=== PATIENT | female | born 1960 | race Caucasian/White ===

== ENCOUNTER 2017-12-31 09:04 | Outpatient (CLI) | payer OTHER ==
[~2017-12-31 09:04] MED LIST: CALCIUM600 MG PO; COMPLEX B-101 TAB.SA PO; DOMPERIDONE1 GM; OSTERA TABLET1 EACH PO; PREVACID30 MG PO; ZANTAC150 M3 PO; [UNRECOGNIZED DRUG - OTHER] PO; [UNRECOGNIZED DRUG - OTHER] TP
== END 2017-12-31 09:05 | disposition home or self-care (01) ==
LOC: RX STUDY 09:04
DX: R10.13 Epigastric pain (principal)